=== PATIENT | female | born 1995 | race Two or more races ===

== ENCOUNTER 2018-01-21 14:00 | Emergency (ER) | payer OTHER ==
[~2018-01-21] VITALS: Ht 160 cm; Wt 68.0 kg
== END 2018-01-21 21:58 ==
LOC: ER 14:00
DX: K29.70 Gastritis, unspecified, without bleeding (principal)

== ENCOUNTER → 2018-02-08 | Emergency (ER) | payer OTHER ==
[~2018-02-08] VITALS: Ht 160 cm; Wt 68.0 kg
[~2018-02-08] MED LIST: KETO10TA2 PO; NORFLEX100MG PO
== END | disposition home or self-care (01) ==
LOC: ER 20:11
DX: M54.89 Other dorsalgia (principal); R07.89 Other chest pain

== ENCOUNTER 2019-07-27 12:15 | Emergency (ER) | payer OTHER ==
[~2019-07-27] VITALS: Ht 160 cm; Wt 80.7 kg
== END 2019-07-27 16:10 | disposition home or self-care (01) ==
LOC: ER 12:15
DX: N93.8 Other specified abnormal uterine and vaginal bleeding (principal)

== ENCOUNTER → 2022-09-20 | Emergency (ER) | payer OTHER ==
[~2022-09-20] VITALS: Ht 160 cm; Wt 76.7 kg
== END | disposition home or self-care (01) ==
LOC: ER 15:47
DX: R10.2 Pelvic and perineal pain (principal)

== ENCOUNTER 2022-10-20 11:12 | Emergency (ER) | payer OTHER ==
[~2022-10-20] VITALS: Ht 160 cm; Wt 77.1 kg
[2022-10-20] MEDS ORDERED: PEPCID AC20 MG PO (15:26)
== END 2022-10-20 15:47 | disposition home or self-care (01) ==
LOC: ER 11:12
DX: R10.84 Generalized abdominal pain (principal)

== ENCOUNTER 2022-12-19 21:04 | Emergency (ER) | payer OTHER ==
[~2022-12-19] VITALS: Ht 160 cm; Wt 77.1 kg
[~2022-12-19 21:04] MED LIST changes: +PEPCID AC20 MG PO
== END 2022-12-20 00:03 | disposition home or self-care (01) ==
LOC: ER 21:04
DX: M53.3 Sacrococcygeal disorders, not elsewhere classified (principal)

== ENCOUNTER → 2023-02-13 | Emergency (ER) | payer OTHER ==
[~2023-02-13] VITALS: Ht 160 cm; Wt 78.0 kg
== END | disposition home or self-care (01) ==
LOC: ER 10:18
DX: M54.2 Cervicalgia (principal); M54.89 Other dorsalgia

== ENCOUNTER 2023-03-21 15:28 | Emergency (ER) | payer OTHER ==
[~2023-03-21] VITALS: Ht 160 cm; Wt 79.4 kg
== END 2023-03-21 18:52 | disposition home or self-care (01) ==
LOC: ER 15:28
DX: O20.0 Threatened abortion (principal); Z3A.00 Weeks of gestation of pregnancy not specified; Z37.9 Outcome of delivery, unspecified

== ENCOUNTER 2023-03-25 18:25 | Emergency (ER) | payer OTHER ==
[~2023-03-25] VITALS: Ht 160 cm; Wt 79.4 kg
== END 2023-03-25 22:05 | disposition home or self-care (01) ==
LOC: ER 18:25
DX: O20.8 Other hemorrhage in early pregnancy (principal); Z3A.01 Less than 8 weeks gestation of pregnancy

== ENCOUNTER 2023-04-02 07:57 | Emergency (ER) | payer OTHER ==
[~2023-04-02] VITALS: Ht 160 cm; Wt 79.4 kg
[2023-04-02] MEDS ORDERED: DICLOFENAC SODI75 MG PO (10:04)
== END 2023-04-02 10:30 | disposition home or self-care (01) ==
LOC: ER 07:57
DX: R07.89 Other chest pain (principal); M94.0 Chondrocostal junction syndrome [Tietze]; R53.81 Other malaise

== ENCOUNTER 2023-05-13 23:03 | Emergency (ER) | payer OTHER ==
[~2023-05-13] VITALS: Ht 160 cm; Wt 79.4 kg
[~2023-05-13 23:03] MED LIST changes: +DICLOFENAC SODI75 MG PO
== END 2023-05-14 00:46 | disposition home or self-care (01) ==
LOC: ER 23:03
DX: U07.1 COVID-19 (principal); M54.89 Other dorsalgia

== ENCOUNTER 2023-05-31 19:26 | Emergency (ER) | payer OTHER ==
[~2023-05-31] VITALS: Ht 160 cm; Wt 77.1 kg
[2023-05-31] MEDS ORDERED: FLONASE16 GM NS (20:13)
[2023-05-31] MEDS ORDERED: CLARITIN5 MG PO (20:13)
== END 2023-06-01 05:39 | disposition home or self-care (01) ==
LOC: ER 19:26
DX: R10.11 Right upper quadrant pain (principal); R11.2 Nausea with vomiting, unspecified

== ENCOUNTER 2023-06-25 03:53 | Emergency (ER) | payer OTHER ==
[~2023-06-25] VITALS: Ht 160 cm; Wt 78.0 kg
[~2023-06-25 03:53] MED LIST changes: +CLARITIN5 MG PO; +FLONASE16 GM NS
== END 2023-06-25 07:39 | disposition home or self-care (01) ==
LOC: ER 03:53
DX: R53.81 Other malaise (principal); J06.9 Acute upper respiratory infection, unspecified